=== PATIENT | male | born 1995 | race Caucasian/White ===

== ENCOUNTER 2021-04-25 16:34 | Emergency (ER) | payer SELFPAY ==
[~2021-04-25] VITALS: Ht 182.9 cm; Wt 136.1 kg
[2021-04-25 16:41] VITALS: BP 136/68
--- NOTE | 2021-04-25 17:45 | NUR ---
No nursing interventions needed.
[2021-04-25] MEDS ORDERED: IBUP-1842 PO (17:48)
--- NOTE | 2021-04-25 18:07 | NUR ---
PT PLACED IN LEFT SHORT LEG ORTHO-GLASS SPLINT AND WRAPPED WITH 4" SILKE WRAPS X2, PT ALSO GIVEN CRUTCHES THAT WERE ADJUSTED TO PT'S SIZE AND HEIGHT. PT SHOWED PROPER DEMONSTRATION OF CRUTCHES AND HAD NO FURTHER QUESTIONS ABOUT CRUTCHES. PA AND RN NOTIFIED.
[2021-04-25 18:17] VITALS: BP 136/68
--- NOTE | 2021-04-25 18:18 | NUR ---
Patient discharged with v/s stable. Written and verbal after care instructions given and explained. Patient alert, oriented and verbalized understanding of instructions. Ambulatory with steady gait. All questions addressed prior to discharge. ID band removed. Patient advised to follow up with PMD. Rx of Ibuprofen was given. Patient educated on indication of medication including possible reaction and side effects. Opportunity to ask questions provided and answered.
--- NOTE | 2021-04-25 18:21 | NUR ---
[facility] in [facility] - 04/25/21 at 1821 by ALLIE No nursing interventions needed.
== END 2021-04-25 18:18 | disposition home or self-care (01) ==
LOC: MED 16:34
DX: M79.672 Pain in left foot (principal); X50.9XXA Other and unspecified overexertion or strenuous movements or postures, initial encounter; Y93.89 Activity, other specified; Y92.89 Other specified places as the place of occurrence of the external cause; Y99.8 Other external cause status
CPT/HCPCS: 29515; 73630; 99283